=== PATIENT | female | born 1990 | race Caucasian/White ===

== ENCOUNTER 2022-10-17 20:41 | Emergency (ER) | payer BC ==
[~2022-10-17] VITALS: Ht 147.3 cm; Wt 49.1 kg
[2022-10-17 21:18] VITALS: TEMP 98.1
[2022-10-17] MEDS ORDERED: AMOXICILLIN 8751 TAB PO (23:05)
[2022-10-17 23:30] VITALS: BP 120/71; PULSE 80
== END 2022-10-17 23:50 | disposition home or self-care (01) ==
LOC: COL.ER 20:41
DX: S01.511A Laceration without foreign body of lip, initial encounter (principal); Z23 Encounter for immunization; W55.03XA Scratched by cat, initial encounter